=== PATIENT | male | born 1950 | race Caucasian/White ===

== ENCOUNTER 2019-06-05 18:38 | Emergency (ER) | payer MEDICARE, OTHER ==
[~2019-06-05] VITALS: Ht 180.3 cm; Wt 93.9 kg
[2019-06-05] MEDS ORDERED: LOPRESSOR100 M1 PO (18:46)
[2019-06-05] MEDS ORDERED: LISINOPRIL40 MG PO (18:46)
[2019-06-05] MEDS ORDERED: IBUPROFEN 600600 M1 PO (18:47)
[2019-06-05] MEDS ORDERED: ZESTORETIC 20-1 EAC2 PO (18:47)
[2019-06-05 18:57] LABS: ABSOLUTE EOSINOPHILS 0.2 thou/uL (0.0-0.7); ABSOLUTE NEUTROPHILS 3.4 thou/uL (1.6-8.1); BASOPHILS 0.7 %; HEMOGLOBIN 15.9 gm/dL (14.0-18.0); MPV 8.7 fl. (7.2-11.1); WBC 5.7 thou/uL (4.0-11.0)
[2019-06-05 18:59] LABS: ABSOLUTE LYMPHOCYTES 1.7 thou/uL (0.8-5.3); ABSOLUTE MONOCYTES 0.4 thou/uL (0.0-1.2); EOSINOPHILS 3.3 %; HEMATOCRIT 43.7 % (42.0-52.0); LYMPHOCYTES 29.4 %; MCH 32.8 pg (26.0-34.0); MCHC 36.4 g/dL (28.0-37.0); MCV 89.9 fL (80.0-100.0); MONOCYTES 6.8 %; NUCLEATED RBCS 0 /100WBC; PLATELET COUNT* 159 thou/uL (150-400); POLYS 59.8 %; RBC 4.86 mil/uL (4.50-6.00); RDW-CV 12.7 % (10.5-14.5)
[2019-06-05 19:04] LABS: ANION GAP 7 mmol/L (7-16); BUN 18 mg/dL (7-18); CHLORIDE 104 mmol/L (98-107); CO2 32 mmol/L (21-32); CREATININE 1.2 mg/dL (0.6-1.3); GLUCOSE 85 mg/dL (70-99); POTASSIUM 3.3 mmol/L (3.5-5.1); PROTIME 10.5 Seconds (9.20-11.50); SODIUM 143 mmol/L (136-145)
[2019-06-05 19:16] LABS: ALBUMIN 3.9 g/dL (3.4-5.0); ALKALINE PHOSPHATASE 87 U/L (46-116); CK-MB MASS 2.3 ng/mL (<0.5-3.6); LIPASE 199 U/L (73-393); MAGNESIUM 1.7 mg/dL (1.8-2.4); NT-PRO BRAIN NAT PEPTIDE 156 pg/mL (<300); SGPT 64 U/L (30-65); TOTAL BILIRUBIN 0.8 mg/dL (<0.1-1.0); TOTAL PROTEIN 7.1 g/dL (6.4-8.2); TROPONIN-I LEVEL <0.06 ng/mL (<0.06)
[2019-06-05 19:43] LABS: SGOT 37 U/L (15-37)
[2019-06-05 20:35] VITALS: BP 160/87
--- NOTE | 2019-06-06 10:37 | EKG ---
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1950 Requested By: Johan Ramos Order Number: [id number] MD: Geovanny Velásquez Measurements Intervals [place] Rate: 69 P: 23 NE: 180 QRS: 19 QRSD: 153 T: 35 QT: 432 QTc: 463 Interpretive Statements Sinus rhythm Right bundle branch block Compared to ECG 08/02/2009 12:52:18 Right bundle-branch block now present Sinus bradycardia no longer present Electronically Signed On 06-06-2019 10:37:21 CDT by Geovanny Velásquez [email or web address] <ELECTRONICALLY SIGNED> By: Geovanny Velásquez MD, [facility] 06/06/19 [phone] Geovanny Velásquez MD, FACC /EPI
== END 2019-06-05 20:35 | disposition home or self-care (01) ==
LOC: M.ERS 18:38
PROVIDERS: Family Medicine
DX: R00.2 Palpitations (principal); I10 Essential (primary) hypertension

== ENCOUNTER 2020-11-18 22:52 | Emergency (ER) | payer OTHER ==
[~2020-11-18] VITALS: Ht 182.9 cm; Wt 88.5 kg
[~2020-11-18 22:52] MED LIST: IBUPROFEN 600600 M1 PO; LISINOPRIL40 MG PO; LOPRESSOR100 M1 PO; ZESTORETIC 20-1 EAC2 PO
[2020-11-18] MEDS ORDERED: NORVASC 2.5 MG2.5 M1 PO (23:06)
[2020-11-18 23:45] LABS: ABSOLUTE EOSINOPHILS 0.2 thou/uL (0.0-0.7); ABSOLUTE MONOCYTES 0.5 thou/uL (0.0-1.2); ABSOLUTE NEUTROPHILS 3.1 thou/uL (1.6-8.1); BASOPHILS 0.8 %; EOSINOPHILS 3.6 %; HEMATOCRIT 39.6 % (42.0-52.0); HEMOGLOBIN 14.1 gm/dL (14.0-18.0); LYMPHOCYTES 33.9 %; MCH 32.2 pg (26.0-34.0); MCHC 35.6 g/dL (28.0-37.0); MCV 90.5 fL (80.0-100.0); NUCLEATED RBCS 0 /100WBC; PLATELET COUNT* 157 thou/uL (150-400); POLYS 52.7 %; RBC 4.38 mil/uL (4.50-6.00); RDW-CV 12.8 % (10.5-14.5); WBC 5.9 thou/uL (4.0-11.0)
[2020-11-19] LABS: CALCIUM 8.6 mg/dL (8.5-10.1); CREATININE 1.4 mg/dL (0.6-1.3); POTASSIUM 3.4 mmol/L (3.5-5.1)
[2020-11-19 00:04] LABS: ALBUMIN 3.6 g/dL (3.4-5.0); TOTAL BILIRUBIN 0.5 mg/dL (<0.1-1.0); TOTAL PROTEIN 6.5 g/dL (6.4-8.2)
[2020-11-19 01:29] VITALS: BP 121/73
--- NOTE | 2020-11-19 16:15 | EKG ---
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 : 1950 Requested By: Yesi Whaley Order Number: [id number] MD: Dave De La Torre Measurements Intervals [place] Rate: 63 P: 34 ID: [id number] QRS: -15 QRSD: 150 T: 19 QT: 441 QTc: 452 Interpretive Statements Sinus rhythm Right bundle branch block Compared to ECG 06/05/2019 18:41:22 No significant changes Electronically Signed On 11-19-2020 16:15:06 [employer] by Dave De La Torre [email or web address] <ELECTRONICALLY SIGNED> By: Dave De La Torre MD, [facility] 11/19/20 1615 2304 2304 Dave De La Torre MD, [facility] /EPI
== END 2020-11-19 01:29 | disposition home or self-care (01) ==
LOC: M.ERS 22:52
PROVIDERS: Personal Emergency Response Attendant
DX: R00.2 Palpitations (principal); I10 Essential (primary) hypertension

== ENCOUNTER → 2020-11-21 | Outpatient (CLI) | payer OTHER ==
[~2020-11-21] MED LIST changes: +NORVASC 2.5 MG2.5 M1 PO
== END ==
LOC: M.CT 14:11
PROVIDERS: ATTEND Internal Medicine Cardiovascular Disease
DX: Z13.6 Encounter for screening for cardiovascular disorders (principal)

== ENCOUNTER → 2020-12-12 | Outpatient (CLI) | payer OTHER ==
[2020-12-12 10:37] LABS: CREATININE 1.1 mg/dL (0.6-1.3)
== END ==
LOC: M.LAB 10:11 → M.CT 11:30
PROVIDERS: ATTEND Internal Medicine Cardiovascular Disease
DX: N28.1 Cyst of kidney, acquired (principal); I71.2 Thoracic aortic aneurysm, without rupture; I77.89 Other specified disorders of arteries and arterioles; K44.9 Diaphragmatic hernia without obstruction or gangrene; R91.1 Solitary pulmonary nodule

== ENCOUNTER → 2021-01-13 | Outpatient (CLI) | payer OTHER ==
[2021-01-13 15:30] LABS: ALBUMIN 3.9 g/dL (3.4-5.0); DIRECT BILIRUBIN 0.2 mg/dL (<0.1-0.3); TOTAL PROTEIN 6.8 g/dL (6.4-8.2)
== END ==
LOC: M.LAB 14:45
PROVIDERS: ATTEND Internal Medicine Cardiovascular Disease
DX: E78.00 Pure hypercholesterolemia, unspecified (principal)

== ENCOUNTER → 2021-05-05 | Outpatient (CLI) | payer OTHER ==
[2021-05-05 08:22] LABS: ALBUMIN 3.9 g/dL (3.4-5.0); ALKALINE PHOSPHATASE 95 U/L (46-116); CHOLESTEROL 121 mg/dL (<200); DIRECT BILIRUBIN 0.2 mg/dL (<0.1-0.3); HDL CHOLESTEROL 33 mg/dL (>40); LDL CHOLESTEROL 54 mg/dL (<100); SERUM ASSESSMENT Clear; SGOT 35 U/L (15-37); SGPT 58 U/L (30-65); TC:HDL 3.7 Ratio (Not establshd); TOTAL BILIRUBIN 0.9 mg/dL (<0.1-1.0); TOTAL PROTEIN 6.6 g/dL (6.4-8.2); TRIGLYCERIDE 171 mg/dL (<150); VLDL 34 mg/dL (<40)
== END ==
LOC: M.LAB 07:31
PROVIDERS: ATTEND Internal Medicine Cardiovascular Disease
DX: E78.00 Pure hypercholesterolemia, unspecified (principal)